=== PATIENT | female | born 1960 | race Caucasian/White ===

== ENCOUNTER → 2017-10-05 09:04 | Outpatient (CLI) | payer OTHER, SELFPAY ==
[2017-10-05 10:06] LABS: Alanine Aminotransferase 26 IU/L (9-52); Albumin 4.3 g/dL (3.5-5.0); Albumin Globulin Ratio 1.3 (1.0-2.8); Alkaline Phosphatase 78 U/L (38-126); Aspartate Aminotransferase 21 IU/L (14-36); BUN Creatinine Ratio 24.3 (6-22); Bilirubin Total 0.5 mg/dL (0.2-1.3); Blood Urea Nitrogen 17 mg/dL (7-17); Calcium 9.5 mg/dL (8.4-10.2); Carbon Dioxide 28 mmol/L (22-32); Chloride 102 mmol/L (98-107); Cholesterol 221 mg/dL (140-199); Estimated Glomerular Filt Rate > 60.0 mL/min (>60); Globulin 3.2 g/dL (1.7-4.1); Glucose 104 mg/dL (70-100); HDL Cholesterol 54 mg/dL (40-60); HEMOLYSIS < 15 (0-50); LDL Cholesterol Calculated 143 mg/dL (<100); Sodium 140 mmol/L (137-145); Total Protein 7.5 g/dL (6.3-8.2); Triglycerides 119 mg/dL (35-150)
[2017-10-05 10:10] LABS: Creatinine Urine Random 65.5 mg/dL
[2017-10-05 10:15] LABS: Microalbumi Creatinin Ratio Ur 13.7 ug/mg CR (<30); Microalbumin Urine Random 0.9 mg/dL (0-1.6)
[2017-10-05 13:09] LABS: Hemoglobin A1C% w Est Avg Glu 5.9 % (4.0-6.0)
== END ==
PROVIDERS: PCP Physician Assistant; Visit Provider Physician Assistant
DX: I10 Essential (primary) hypertension (principal); E78.2 Mixed hyperlipidemia; E11.9 Type 2 diabetes mellitus without complications
CPT/HCPCS: 80053; 80061; 82043; 82570; 83036

== ENCOUNTER → 2018-02-15 10:36 | Outpatient (CLI) | payer OTHER, SELFPAY ==
[2018-02-15 11:28] LABS: Cholesterol 204 mg/dL (140-199); HDL Cholesterol 47 mg/dL (40-60); LDL Cholesterol Calculated 126 mg/dL (<100); Triglycerides 156 mg/dL (35-150)
== END ==
PROVIDERS: PCP Physician Assistant; Visit Provider Physician Assistant
DX: E78.2 Mixed hyperlipidemia (principal)
CPT/HCPCS: 80061

== ENCOUNTER → 2018-11-29 09:15 | Outpatient (CLI) | payer OTHER, SELFPAY ==
[2018-11-29 10:35] LABS: Alanine Aminotransferase 33 IU/L (9-52); Albumin 4.3 g/dL (3.5-5.0); Albumin Globulin Ratio 1.3 (1.0-2.8); Alkaline Phosphatase 87 U/L (38-126); Aspartate Aminotransferase 29 IU/L (14-36); BUN Creatinine Ratio 22.9 (6-22); Bilirubin Total 0.5 mg/dL (0.2-1.3); Blood Urea Nitrogen 16 mg/dL (7-17); Carbon Dioxide 30 mmol/L (22-32); Chloride 101 mmol/L (98-107); Cholesterol 210 mg/dL (140-199); Estimated Glomerular Filt Rate > 60.0 mL/min (>60); Globulin 3.3 g/dL (1.7-4.1); Glucose 115 mg/dL (70-100); HDL Cholesterol 42 mg/dL (40-60); HEMOLYSIS < 15 (0-50); LDL Cholesterol Calculated 125 mg/dL (<100); Potassium 3.5 mmol/L (3.4-5.1); Sodium 140 mmol/L (137-145); Total Protein 7.6 g/dL (6.3-8.2); Triglycerides 215 mg/dL (35-150)
[2018-11-29 10:50] LABS: Hemoglobin A1C% w Est Avg Glu 6.1 % (4.0-6.0)
[2018-11-30 15:51] LABS: Microalbumin Urine Random 2.7 mg/dL (0-1.6)
[2018-11-30 16:00] LABS: Creatinine Urine Random 199.1 mg/dL; Microalbumi Creatinin Ratio Ur 13.5 ug/mg CR (<30)
== END ==
PROVIDERS: PCP Physician Assistant; Visit Provider Physician Assistant
DX: E11.9 Type 2 diabetes mellitus without complications (principal); E78.2 Mixed hyperlipidemia; I10 Essential (primary) hypertension
CPT/HCPCS: 36415; 80053; 80061; 82043; 82570; 83036

== ENCOUNTER → 2019-03-13 11:08 | Outpatient (CLI) | payer OTHER, SELFPAY ==
--- NOTE | 2019-03-13 11:29 | DI.CT.S_ITS ---
PROCEDURE: CT LE LT W CON INDICATIONS: Presence of artificial hip joint, bilateral TECHNIQUE: Noncontrast 3 mm axial sections acquired through the bony pelvis. Additional 3 mm axial sections acquired through the symptomatic hip joint, with coronal and sagittal reformats. COMPARISON: None. FINDINGS: Image quality: Diagnostic. Bones: Patient is status post bilateral total hip arthroplasty. Bilateral hip alignment is anatomic. There is no gross hardware loosening or failure. Fairly symmetric appearing bilateral polyethylene wear is seen. No suspicious intraosseous lesion. Soft tissues: There is asymmetric prominence of left inferior iliopsoas muscle and anterior to the level of left acetabulum with internal subtle hypodensity concerning for adductor muscle strain/partial thickness tear with intramuscular hematoma. No other muscle or soft tissue abnormality is seen. There is no pelvic free fluid of free air. Urinary bladder is normal in appearance. No pelvic lymphadenopathy. IMPRESSION: 1. Prior bilateral total hip arthroplasty with anatomic alignment. No fracture or dislocation. No gross hardware complication. No suspicious bony lesion. 2. Suggestion of strain/intrasubstance partial-thickness tear involving distal left iliopsoas muscle anterior to the left acetabulum and left femoral head prosthesis with suggestion of intramuscular hematoma. Dictated by: Edgar Lund M.D. on 03/13/2019 at 14:08 Approved by: Edgar Lund M.D. on 03/13/2019 at 14:23
== END ==
PROVIDERS: PCP Physician Assistant; Visit Provider Orthopaedic Surgery Adult Reconstructive Orthopaedic Surgery
DX: M25.552 Pain in left hip (principal); Z96.643 Presence of artificial hip joint, bilateral
CPT/HCPCS: 73700

== ENCOUNTER → 2019-10-30 07:34 | Outpatient (CLI) | payer OTHER, SELFPAY ==
[2019-10-30 08:06] LABS: Add Manual Diff / Slide Review NO; Basophils Absolute Auto 100 /uL (0-100); Basophils Percent Auto 0.6 % (0-2); Eosinophils Absolute Auto 200 /uL (0-450); Eosinophils Percent Auto 2.2 % (2-4); Hematocrit 38.8 % (36-46); Hemoglobin 13.3 g/dL (12.0-16.0); Lymphocytes Absolute Auto 1700 /uL (1100-4500); Lymphocytes Percent Auto 20.5 % (25-40); Mean Corpuscular HGB Conc 34.2 % (30-36); Mean Corpuscular Hemoglobin 30.1 PG (26-34); Mean Corpuscular Volume 87.9 fL (80-100); Monocytes Absolute Auto 700 /uL (0-900); Monocytes Percent Auto 8.6 % (3-14); Neutrophils Absolute Auto 5700 /uL (1500-7000); Neutrophils Percent Auto 68.1 % (50-75); Platelet Count 224 X10^3/uL (150-400); Red Blood Cell Count 4.42 X10^6/uL (4.0-5.2); Red Cell Distribution Width 13.6 % (11.6-14.8); White Blood Cell Count 8.4 X10^3/uL (4.5-11.0)
[2019-10-30 08:17] LABS: Hemoglobin A1C% w Est Avg Glu 6.3 % (4.0-6.0)
[2019-10-30 08:23] LABS: Creatinine Urine Random 131.1 mg/dL
[2019-10-30 08:25] LABS: Alanine Aminotransferase 29 IU/L (<35); Albumin 4.4 g/dL (3.5-5.0); Albumin Globulin Ratio 1.4 (1.0-2.8); Alkaline Phosphatase 90 U/L (38-126); Aspartate Aminotransferase 25 IU/L (14-36); BUN Creatinine Ratio 26.9 (6-22); Bilirubin Total 0.6 mg/dL (0.2-1.3); Blood Urea Nitrogen 21 mg/dL (7-17); Calcium 9.4 mg/dL (8.4-10.2); Carbon Dioxide 30 mmol/L (22-32); Chloride 98 mmol/L (98-107); Cholesterol 220 mg/dL (140-199); Estimated Glomerular Filt Rate > 60.0 mL/min (>60); Globulin 3.2 g/dL (1.7-4.1); Glucose 138 mg/dL (70-100); HDL Cholesterol 43 mg/dL (40-60); HEMOLYSIS < 15 (0-50); LDL Cholesterol Calculated 127 mg/dL (<100); Potassium 3.6 mmol/L (3.4-5.1); Sodium 137 mmol/L (137-145); Total Protein 7.6 g/dL (6.3-8.2); Triglycerides 251 mg/dL (35-150)
[2019-10-30 08:28] LABS: Microalbumin Urine Random 2.1 mg/dL (0-1.6)
[2019-10-30 08:54] LABS: TSH w/ Reflex to FT4 2.39 uIU/mL (0.47-4.68)
== END ==
PROVIDERS: PCP Registered Nurse Diabetes Educator; Referring Provider Registered Nurse Diabetes Educator; Visit Provider Registered Nurse Diabetes Educator
DX: E11.9 Type 2 diabetes mellitus without complications (principal); E66.9 Obesity, unspecified; E78.2 Mixed hyperlipidemia; I10 Essential (primary) hypertension
CPT/HCPCS: 36415; 80053; 80061; 82043; 82570; 83036; 84443; 85025

== ENCOUNTER 2020-08-17 15:16 | Emergency (ER) | payer OTHER, SELFPAY ==
[2020-08-17 15:23] VITALS: BP 174/80; PULSE 83; RESP 16; TEMP 36.6; O2SAT 97; BMI 34.1
--- NOTE | 2020-08-17 15:30 | ED.LOWEXIN ---
HPI - Extremity Injury (Lower) General Chief Complaint: Extremity Injury, Lower Stated Complaint: rt lower leg pain and swelling Time Seen by Provider: 08/17/20 15:19 Source: patient Mode of arrival: Ambulatory Limitations: no limitations History of Present Illness HPI Narrative: 60-year-old female smoker with history of hypertension, type 2 diabetes presents with a chief complaint of right leg pain and swelling for 2 weeks. She has had no recent injury. She denies fever, chills, nausea, vomiting nor warmth of the leg. She has not had any recent travel or injury but does admit to a rather sedentary lifestyle. She was seen and evaluated at the walk-in clinic and sent here for evaluation of a possible DVT. She is not dizzy nor weak or lightheaded. She denies any chest pain or shortness of breath. She states the pain is largely behind her knee and is significantly painful with any ambulation. She has improvement with rest. She denies any numbness, tingling or weakness Related Data Home Medications Medication Instructions Recorded Confirmed vitamin B complex [B 1 tab PO QDAY #0 09/20/16 08/17/20 Complex-Vitamin B12] Previous Rx's Medication Instructions Recorded Glucose: Home Monitoring Kit kit #1 02/23/16 Lancet: Device ea #100 02/23/16 carbamazepine 200 mg tablet 200 mg PO QID PRN #90 tab 10/28/19 metformin 500 mg tablet,extended 500 mg PO DAILY #90 tab 10/28/19 release 24 hr varicella-zoster gE vac,2 of 2 50 See Rx Instructions IM .COMPLEX #1 10/30/19 mcg IM suspension each hydrochlorothiazide 25 mg tablet 25 mg PO DAILY #90 tab 12/27/19 Glucose: Test Strips #100 each 04/01/20 ketorolac 10 mg PO Q6H PRN #14 tab 08/17/20 Allergies Allergy/AdvReac Type Severity Reaction Status Date / Time Penicillins [PENICILLINS] Allergy Intermediate RASH Unverified 08/17/20 14:16 Review of Systems Constitutional Constitutional: Denies chills, Denies fatigue, Denies fever(s), Denies frequent falls, Denies lethargy and Denies weakness Eyes Eyes: Denies change in vision, Denies eye discharge, Denies irritation and Denies loss of vision ENT Ears, Nose, Mouth, and Throat: Denies change in voice, Denies dizziness, Denies neck pain, Denies sore throat and Denies throat swelling Cardiovascular Cardiovascular: Denies chest pain, Denies irregular heart rhythm, Denies lightheadedness, Denies palpitations, Denies dyspnea, Denies dyspnea on exertion and Denies orthopnea Respiratory Respiratory: Denies cough, Denies dyspnea, Denies dyspnea on exertion and Denies wheezing Gastrointestinal Gastrointestinal: Denies abdominal pain, Denies change in bowel habits, Denies diarrhea, Denies nausea and Denies vomiting Musculoskeletal Musculoskeletal: Reports arthralgias, Reports limited range of motion, Denies neck pain and Denies numbness Integumentary/Breasts Skin/Breast: Denies pruritus, Denies erythema, Denies rash and Denies wounds Neurologic Neurologic: Denies behavioral changes, Denies confusion, Denies dizziness, Denies frequent falls, Denies loss of vision, Denies numbness and Denies weakness Psychiatric Psychiatric: Denies anxiety, Denies behavioral changes, Denies confusion, Denies depression, Denies homicidal ideation and Denies suicidal ideation Endocrine Endocrine: Denies fatigue, Denies flushing and Denies palpitations Hematologic/Lymphatic Hematologic/Lymphatic: Denies easy bruising Allergic/Immunologic Allergic/Immunologic: Denies urticaria, Denies throat swelling and Denies wheezing Patient History Medical History (Updated 08/17/20 @ 16:53 by Ronald Serrano DO) Bunion of right foot Diabetes Hyperlipemia Hypertension Neuralgia and neuritis Obstructive sleep apnea (~12/2011) Social History Smoking Status: Never smoker second hand exposure: No alcohol intake: never substance use type: does not use Smoking Status: Never smoker Exam Narrative Exam Narrative: GEN: AOx3 and in mild distress EYES: Pupils are equal, round, and reactive to light and accommodation. Extraoccular muscles are intact bilaterally. There is no subconjunctival hemorrhage or exudate. CHEST: Lungs are clear to auscultation bilaterally and free of wheezes, rales, or rhonchi. Heart rate is regular rhythm, there are no murmurs, clicks, rubs, or gallops. There is no chest wall tenderness. ABD: Abdomen is soft and nontender. There is no guarding or rebound. Bowel sounds are normal in all 4 quadrants. There is no mass or organomegaly. EXT: Posterior right knee pain to palpation, no obvious swelling, no effusion, erythema or warmth. No ligamentous instability, no joint line tenderness and no increased pain with axial SKIN: Warm, pink, and dry. No erythema or rash Initial Vital Signs Initial Vital Signs: Vital Signs Temperature 97.9 F 08/17/20 15:23 Pulse Rate 83 08/17/20 15:23 Respiratory Rate 16 08/17/20 15:23 Blood Pressure 174/80 H 08/17/20 15:23 Pulse Oximetry 97 08/17/20 15:23 Course Orders Ordered: ED Orders 08/17/20 15:40 US periph venous low extrem rt Stat XR knee RT 3V Stat Vital Signs Vital signs: Vital Signs - 8 hr 08/17/20 15:23 08/17/20 17:05 Temperature 97.9 F Pulse Rate 83 81 Respiratory Rate 16 Blood Pressure 174/80 H 139/67 Pulse Oximetry 97 97 MDM - Extremity Injury (Lower) Imaging Data Extremity x-ray #1: Radiologist's Impression: Dutton,Alice Greene 60 F [address] [id number] ReportSigned Patient: Alice Dutton DMR#: [id number]: 1960Acct:[id number]/Sex: 60 / FDate of Service: 08/17/20Loc: EDAccession Number: [id number] Procedure: XR knee RT 3V Ordering Provider: Ronald Serrano D.O. PROCEDURE: XR KNEE RT 3V INDICATIONS: knee pain, sent from [facility] TECHNIQUE: 3 views of the knee were acquired. COMPARISON: None. FINDINGS: Bones: No fractures or dislocations. No suspicious bony lesions. There is mild tricompartmental degenerative narrowing. Patellar osteophytes are noted. Soft tissues: Minimal joint effusion. No suspicious soft tissue calcifications. IMPRESSION: Degenerative change. No visualized acute fracture or dislocation. However, if clinical concern and/or pain persist, short interval imaging followup in 7-10 days is recommended, as occult injury cannot be definitively excluded. Dictated by: Opal Vang M.D. on 08/17/2020 at 16:00 Approved by: Opal Vang M.D. on 08/17/2020 at 16:02 US - DVT: Radiologist's Impression: Alice Dutton 60 F 1960 [facility] [place] [id number] ReportSigned Patient: Alice Dutton DMR#: [id number]: 1960Acct:[id number]/Sex: 60 / FDate of Service: 08/17/20Loc: EDAccession Number: [id number] Procedure: US periph venous low extrem rt Ordering Provider: Ronald Serrano D.O. PROCEDURE: US PERIP VENOUS LOW EXTREM RT INDICATIONS: POSTERIOR RT KNEE PAIN, RULE OUT DVT TECHNIQUE: Real-time imaging, as well as color and pulse Doppler interrogation, were performed of the lower extremity deep veins from the inguinal ligament to the popliteal fossa. COMPARISON: [facility], CR, XR KNEE RT 3V, 08/17/2020, 15:49. FINDINGS: The common femoral, femoral and popliteal veins are normally compressible, and free of intraluminal thrombus. Color and pulse Doppler demonstrate normal phasic intraluminal flow. There is normal augmentation response to distal compression maneuver. IMPRESSION: Negative for deep venous thrombosis. Note: Concordant preliminary findings given by the speech assistant upon the completion of the examination to this patient's nurse. Dictated by: Pierre Lundberg M.D. on 08/17/2020 at 15:35 Approved by: Pierre Lundberg M.D. on 08/17/2020 at 15:35 MDM Narrative Medical decision making narrative: Multiple diagnoses considered including DVT versus Michael cyst versus cellulitis versus septic arthritis versus osteoarthritis versus other. Patient had no memorable injury and a very reassuring physical exam without evidence of effusion, erythema or warmth nor systemic findings to suggest infection such as fever, chills nor nausea or vomiting. Patient has a full nearly painless range of motion and gouty arthritis and septic arthritis or thought highly unlikely. There is no trauma nor ligamentous instability with normal x-ray. DVT considered unlikely given lack of swelling, erythema or warmth and ultrasound was negative. Patient encouraged to weightbear as tolerated, take anti-inflammatories and follow closely with her primary care provider. Return precautions given and questions answered to her apparent satisfaction Discharge Plan Departure Patient Disposition: Home Clinical Impression: Acute knee pain Qualifiers: Laterality: right Qualified Code(s): M25.561 - Pain in right knee Instructions: DI for Knee Pain Activity Restrictions/Additional Instructions: *You have been diagnosed with [right knee pain without obvious injury. X-ray and ultrasound are very reassuring, no DVT is noted.] *What to do: *Please continue to take your regular medications as directed. [x ] New medication prescriptions sent to your pharmacy: [[facility] ] [ ] New medication written as a paper prescription [ ] No new medications given *Please follow up with your primary care provider in 2-3 days, call for an appointment. Let them know you were seen in the Emergency Department and that we ask that you be seen in follow up. We will electronically transmit a record of today's note if your PCP is in our system *If you do not have a primary care provider please contact the [facility] Resource line at [phone]. They will ask some questions about your medical history and help get you set up with a doctor in the community. *Return to Emergency Department if you should have any new, worsening or concerning symptoms, such as [fever greater than 101 F, shaking chills, worsening pain, persistent vomiting or other bothersome symptoms] Prescriptions: New ketorolac 10 mg tablet 10 mg PO Q6H PRN (Reason: pain) Qty: 14 RF: 0 No Action Glucose: Home Monitoring Kit Qty: 1 RF: 0 Lancet: Device Qty: 100 RF: 0 vitamin B complex [B Complex-Vitamin B12] 1 EACH tablet 1 tab PO QDAY Qty: 0 RF: 0 hydrochlorothiazide 25 mg tablet 25 mg PO DAILY Qty: 90 RF: 2 (DME) Glucose: Test Strips 0 .Route .MEDSUPPLY Qty: 100 RF: 3 carbamazepine 200 mg tablet 200 mg PO QID PRN (Reason: Neuralgia) Qty: 90 RF: 3 metformin 500 mg tablet extended release 24 hr 500 mg PO DAILY Qty: 90 RF: 3 Shingrix gE Antigen Component 50 mcg suspension for reconstitution See Rx Instructions IM .COMPLEX Qty: 1 RF: 1 Referrals: Moreno Tai ARNP [Primary Care Provider] -
--- NOTE | 2020-08-17 15:40 | DI.US.S_ITS ---
PROCEDURE: US PERIPH VENOUS LOW EXTREM RT INDICATIONS: POSTERIOR RT KNEE PAIN, RULE OUT DVT TECHNIQUE: Real-time imaging, as well as color and pulse Doppler interrogation, were performed of the lower extremity deep veins from the inguinal ligament to the popliteal fossa. COMPARISON: [facility], CR, XR KNEE RT 3V, 08/17/2020, 15:49. FINDINGS: The common femoral, femoral and popliteal veins are normally compressible, and free of intraluminal thrombus. Color and pulse Doppler demonstrate normal phasic intraluminal flow. There is normal augmentation response to distal compression maneuver. IMPRESSION: Negative for deep venous thrombosis. Note: Concordant preliminary findings given by the program host upon the completion of the examination to this patient's nurse. Dictated by: Pierre Lundberg M.D. on 08/17/2020 at 15:35 Approved by: Pierre Lundberg M.D. on 08/17/2020 at 15:35
--- NOTE | 2020-08-17 15:40 | DI.RAD.S_ITS ---
PROCEDURE: XR KNEE RT 3V INDICATIONS: knee pain, sent from [facility] TECHNIQUE: 3 views of the knee were acquired. COMPARISON: None. FINDINGS: Bones: No fractures or dislocations. No suspicious bony lesions. There is mild tricompartmental degenerative narrowing. Patellar osteophytes are noted. Soft tissues: Minimal joint effusion. No suspicious soft tissue calcifications. IMPRESSION: Degenerative change. No visualized acute fracture or dislocation. However, if clinical concern and/or pain persist, short interval imaging followup in 7-10 days is recommended, as occult injury cannot be definitively excluded. Dictated by: Opal Vang M.D. on 08/17/2020 at 16:00 Approved by: Opal Vang M.D. on 08/17/2020 at 16:02
[2020-08-17 17:05] VITALS: BP 139/67; PULSE 81; O2SAT 97
== END 2020-08-17 17:10 | disposition home or self-care (01) ==
PROVIDERS: Emergency Provider Emergency Medicine; PCP Registered Nurse Diabetes Educator; Referring Provider Nurse Practitioner Family
DX: M25.561 Pain in right knee (principal)
CPT/HCPCS: 73562; 93971; 99283; 99284

== ENCOUNTER → 2021-03-10 07:19 | Outpatient (CLI) | payer OTHER, SELFPAY ==
[2021-03-10 08:57] LABS: Hemoglobin A1C% w Est Avg Glu 6.6 % (4.0-6.0)
[2021-03-10 09:17] LABS: Hematocrit 37.8 % (36-46); Hemoglobin 13.1 g/dL (12.0-16.0); Mean Corpuscular HGB Conc 34.6 % (30-36); Mean Corpuscular Hemoglobin 30.6 PG (26-34); Mean Corpuscular Volume 88.4 fL (80-100); Platelet Count 209 X10^3/uL (150-400); Red Blood Cell Count 4.28 X10^6/uL (4.0-5.2); Red Cell Distribution Width 13.2 % (11.6-14.8); White Blood Cell Count 8.8 X10^3/uL (4.5-11.0)
[2021-03-10 09:30] LABS: Alanine Aminotransferase 22 IU/L (<35); Albumin 4.3 g/dL (3.5-5.0); Albumin Globulin Ratio 1.3 (1.0-2.8); Alkaline Phosphatase 84 U/L (38-126); Aspartate Aminotransferase 22 IU/L (14-36); BUN Creatinine Ratio 19.4 (6-22); Bilirubin Total 0.4 mg/dL (0.2-1.3); Blood Urea Nitrogen 13 mg/dL (7-17); Calcium 9.2 mg/dL (8.4-10.2); Carbon Dioxide 30 mmol/L (22-32); Chloride 98 mmol/L (98-107); Cholesterol 223 mg/dL (140-199); Creatinine Urine Random 129.5 mg/dL; Estimated Glomerular Filt Rate > 60.0 mL/min (>60); Globulin 3.2 g/dL (1.7-4.1); Glucose 131 mg/dL (80-110); HDL Cholesterol 50 mg/dL (40-60); HEMOLYSIS < 15 (0-50); LDL Cholesterol Calculated 136 mg/dL (<100); Potassium 3.6 mmol/L (3.4-5.1); Sodium 138 mmol/L (137-145); Total Protein 7.5 g/dL (6.3-8.2); Triglycerides 187 mg/dL (35-150)
[2021-03-10 09:35] LABS: Microalbumi Creatinin Ratio Ur 11.5 ug/mg CR (<30); Microalbumin Urine Random 1.5 mg/dL (0-1.6)
[2021-03-10 09:56] LABS: TSH w/ Reflex to FT4 1.31 uIU/mL (0.47-4.68)
== END ==
PROVIDERS: PCP Registered Nurse Diabetes Educator; Referring Provider Registered Nurse Diabetes Educator; Visit Provider Registered Nurse Diabetes Educator
DX: E11.9 Type 2 diabetes mellitus without complications (principal); E78.5 Hyperlipidemia, unspecified; I10 Essential (primary) hypertension
CPT/HCPCS: 36415; 80053; 80061; 82043; 82570; 83036; 84443; 85027

== ENCOUNTER → 2022-06-25 08:38 | Outpatient (CLI) | payer OTHER, SELFPAY ==
[2022-06-25 09:53] LABS: Add Manual Diff / Slide Review NO; Basophils Absolute Auto 0 /uL (0-100); Basophils Percent Auto 0.5 % (0-2); Eosinophils Absolute Auto 100 /uL (0-450); Eosinophils Percent Auto 1.5 % (2-4); Hematocrit 39.4 % (36-46); Hemoglobin 13.5 g/dL (12.0-16.0); Lymphocytes Absolute Auto 1600 /uL (1100-4500); Lymphocytes Percent Auto 20.5 % (25-40); Mean Corpuscular HGB Conc 34.2 % (30-36); Mean Corpuscular Hemoglobin 30.3 PG (26-34); Mean Corpuscular Volume 88.4 fL (80-100); Monocytes Absolute Auto 700 /uL (0-900); Monocytes Percent Auto 8.3 % (3-14); Neutrophils Absolute Auto 5500 /uL (1500-7000); Neutrophils Percent Auto 69.2 % (50-75); Platelet Count 210 X10^3/uL (150-400); Red Blood Cell Count 4.46 X10^6/uL (4.0-5.2); Red Cell Distribution Width 13.3 % (11.6-14.8)
[2022-06-25 10:18] LABS: Alanine Aminotransferase 30 IU/L (<35); Albumin 4.5 g/dL (3.5-5.0); Albumin Globulin Ratio 1.4 (1.0-2.8); Alkaline Phosphatase 80 U/L (38-126); Aspartate Aminotransferase 25 IU/L (14-36); BUN Creatinine Ratio 21.9 (6-22); Bilirubin Total 0.4 mg/dL (0.2-1.3); Blood Urea Nitrogen 16 mg/dL (7-17); Calcium 9.3 mg/dL (8.4-10.2); Carbon Dioxide 34 mmol/L (22-32); Chloride 95 mmol/L (98-107); Cholesterol 224 mg/dL (140-199); Estimated Glomerular Filt Rate > 60 mL/min (>60); Globulin 3.3 g/dL (1.7-4.1); Glucose 121 mg/dL (80-110); HDL Cholesterol 45 mg/dL (40-60); HEMOLYSIS < 15 (0-50); LDL Cholesterol Calculated 134 mg/dL (<100); Potassium 3.8 mmol/L (3.4-5.1); Sodium 137 mmol/L (137-145); Total Protein 7.8 g/dL (6.3-8.2); Triglycerides 226 mg/dL (35-150)
[2022-06-25 10:31] LABS: Creatinine Urine Random 84.9 mg/dL
[2022-06-25 10:38] LABS: Microalbumin Urine Random 0.6 mg/dL (0-1.6)
[2022-06-25 10:44] LABS: TSH w/ Reflex to FT4 1.86 uIU/mL (0.47-4.68)
[2022-06-26 08:37] LABS: x Labcorp Estim. Avg Glu (eAG) 140 mg/dL (.); x Labcorp Hemoglobin A1c 6.5 % (4.8-5.6)
== END ==
PROVIDERS: PCP Registered Nurse Diabetes Educator; Referring Provider Registered Nurse Diabetes Educator; Visit Provider Registered Nurse Diabetes Educator
DX: E11.9 Type 2 diabetes mellitus without complications (principal); E66.9 Obesity, unspecified; E78.5 Hyperlipidemia, unspecified; I10 Essential (primary) hypertension
CPT/HCPCS: 36415; 80053; 80061; 82043; 82570; 83036; 84443; 85025

== ENCOUNTER → 2023-09-18 07:39 | Outpatient (CLI) | payer OTHER, SELFPAY ==
[2023-09-18 08:21] LABS: Hemoglobin 12.7 g/dL (12.0-16.0); Mean Corpuscular HGB Conc 34.5 % (30-36); Mean Corpuscular Hemoglobin 30.9 PG (26-34); Mean Corpuscular Volume 89.7 fL (80-100); Platelet Count 210 X10^3/uL (150-400); Red Blood Cell Count 4.12 X10^6/uL (4.0-5.2); Red Cell Distribution Width 13.2 % (11.6-14.8); White Blood Cell Count 9.2 X10^3/uL (4.5-11.0)
[2023-09-18 08:40] LABS: Hemoglobin A1C% w Est Avg Glu 8.4 % (4.0-6.0)
[2023-09-18 08:48] LABS: Alanine Aminotransferase 31 IU/L (<35); Albumin 4.1 g/dL (3.5-5.0); Albumin Globulin Ratio 1.3 (1.0-2.8); Alkaline Phosphatase 91 U/L (38-126); Aspartate Aminotransferase 27 IU/L (14-36); BUN Creatinine Ratio 24.3 (6-22); Bilirubin Total 0.6 mg/dL (0.2-1.3); Blood Urea Nitrogen 17 mg/dL (7-17); Calcium 9.2 mg/dL (8.4-10.2); Carbon Dioxide 28 mmol/L (22-32); Chloride 96 mmol/L (98-107); Cholesterol 207 mg/dL (140-199); Estimated Glomerular Filt Rate > 60 mL/min (>60); Globulin 3.2 g/dL (1.7-4.1); Glucose 215 mg/dL (80-110); HDL Cholesterol 44 mg/dL (40-60); HEMOLYSIS < 15 (0-50); LDL Cholesterol Calculated 106 mg/dL (<100); Potassium 3.4 mmol/L (3.4-5.1); Sodium 134 mmol/L (137-145); Total Protein 7.3 g/dL (6.3-8.2); Triglycerides 285 mg/dL (35-150)
[2023-09-18 09:14] LABS: TSH w/ Reflex to FT4 1.95 uIU/mL (0.47-4.68)
[2023-09-18 10:09] LABS: Creatinine Urine Random 230.99 mg/dL
[2023-09-18 10:11] LABS: Microalbumin Urine Random 10.3 mg/dL (0-1.6)
== END ==
PROVIDERS: PCP Family Medicine; Referring Provider Registered Nurse Diabetes Educator; Visit Provider Registered Nurse Diabetes Educator
DX: E78.5 Hyperlipidemia, unspecified (principal); E11.9 Type 2 diabetes mellitus without complications; I10 Essential (primary) hypertension; E66.9 Obesity, unspecified
CPT/HCPCS: 36415; 80053; 80061; 82043; 82570; 83036; 84443; 85027

== ENCOUNTER → 2024-01-21 07:21 | Outpatient (CLI) | payer OTHER, SELFPAY | PROVIDERS: PCP Family Medicine; Referring Provider Family Medicine; Visit Provider Family Medicine | DX: E66.9 Obesity, unspecified (principal); E11.9 Type 2 diabetes mellitus without complications | CPT/HCPCS: 36415; 83036 ==

== ENCOUNTER → 2024-04-16 08:13 | Outpatient (CLI) | payer OTHER, SELFPAY ==
[2024-04-16 09:31] LABS: Hemoglobin A1C% w Est Avg Glu 6.7 % (4.0-6.0)
== END ==
PROVIDERS: PCP Family Medicine; Referring Provider Family Medicine; Visit Provider Family Medicine
DX: E11.9 Type 2 diabetes mellitus without complications (principal)
CPT/HCPCS: 36415; 83036

== ENCOUNTER → 2025-01-13 12:12 | Outpatient (CLI) | payer OTHER, SELFPAY ==
--- NOTE | 2025-01-13 | DI.RAD.S_ITS ---
PROCEDURE: XR FOOT LT MIN 3V
--- NOTE | 2025-01-13 | DI.RAD.S_ITS ---
PROCEDURE: XR FOOT RT MIN 3V
== END ==
PROVIDERS: PCP Family Medicine; Referring Provider Podiatrist Foot & Ankle Surgery; Visit Provider Podiatrist Foot & Ankle Surgery
DX: M76.822 Posterior tibial tendinitis, left leg (principal); M77.32 Calcaneal spur, left foot; M20.11 Hallux valgus (acquired), right foot; M20.5X1 Other deformities of toe(s) (acquired), right foot; M79.671 Pain in right foot
CPT/HCPCS: 73630